=== PATIENT | female | born 1950 | race Caucasian/White ===

== ENCOUNTER → 2023-11-08 06:16 | Day surgery (SDC) | payer MEDICARE, SELFPAY | LOC: GI 06:16 | PROVIDERS: ATTENDING PHYSICIAN Surgery; FAMILY PHYSICIAN Registered Nurse | DX: Z12.11 Encounter for screening for malignant neoplasm of colon (principal); K64.9 Unspecified hemorrhoids; D12.0 Benign neoplasm of cecum; D12.5 Benign neoplasm of sigmoid colon; Z86.010 Personal history of colon polyps | CPT/HCPCS: 45385; 45380; 88305 ==